=== PATIENT | male | born 1965 | race Caucasian/White ===

== ENCOUNTER 2024-02-09 11:39 | Emergency (ER) | payer OTHER, SELFPAY ==
--- NOTE | 2024-02-09 11:57 | ED.MALEGU ---
HPI - Male Genitourinary General Chief complaint: Urogenital-Male Stated complaint: Bladder/UTI Time Seen by Provider: 02/09/24 12:10 Source: patient Mode of arrival: ambulatory Limitations: no limitations History of Present Illness HPI Narrative: Tian is a 58-year-old male patient presenting to the clinic today with complaints of possible bladder infection. He reports symptoms started 2 days ago. Had fever of 100.4? F last night. Reports he is having some tingling pain to the tip of his penis as well as urgency and frequency with urination. He denies any back back pain or abdominal pain. He denies any concern for STIs. No history of BPH or prostatitis Related Data Allergies Allergy/AdvReac Type Severity Reaction Status Date / Time No Known Allergies Allergy Verified 02/09/24 12:13 Review of Systems Review of Systems: Pertinent positives per HPI. Patient denies any fever, chills, rash, headache, visual changes, dizziness, cough, runny nose, sore throat, shortness of breath, chest pain, palpitations, nausea, vomiting, diarrhea, constipation, abdominal pain. [facility] Social History Social History Alcohol intake: current Comments At the time of my signature, I reviewed and agree with the nursing past medical, surgical, social, and family history. There is no relevant family history pertinent to the patient complaint. Exam Narrative: General: Well-developed, obese in no apparent distress. Head: Normocephalic, atraumatic. Cardio: Regular rate and rhythm, s1 and s2 normal, no murmur appreciated. Resp: Clear to auscultation bilaterally, no rhonchi, rales, wheezing or rubs. Abdomen: Soft, pliable, bowel sounds present in all quadrants, non-tender to palpation, no organomegly, no CVAT tenderness. Course Course Emergency Course: Portions of this record may have been created with voice recognition software. Level of Care: Express Care Visit Vital Signs Vital signs: Vital Signs Temperature 36.8 C 02/09/24 12:01 Pulse Rate 74 02/09/24 12:01 Respiratory Rate 16 02/09/24 12:01 Blood Pressure 123/67 02/09/24 12:01 Pulse Oximetry 96 02/09/24 12:01 Oxygen Delivery Room Air 02/09/24 12:01 Temperature 36.8 C 02/09/24 12:01 Pulse Rate 74 02/09/24 12:01 Respiratory Rate 16 02/09/24 12:01 Blood Pressure 123/67 02/09/24 12:01 Pulse Oximetry 96 02/09/24 12:01 Oxygen Delivery Room Air 02/09/24 12:01 Vital signs reviewed MDM - Male Genitourinary MDM Narrative Medical decision making narrative: At the time of visit patient is resting comfortably on the exam table. Patient appears to be nontoxic. Labs: Urine shows positive 1+ leukocyte and trace of blood. We will send in prescription for Bactrim and send urine for culture. Plan: I suspect patient has UTI. Prescription for Bactrim was sent to the pharmacy. Supportive measures were discussed with the patient and they voiced understanding discharge instructions and agrees to treatment plan. Return precautions reviewed Differential Diagnosis Differential diagnosis: Likely urinary tract infection, urethritis, epididymitis, prostatitis and acute retention of urine Lab Data Labs: Urine Glucose Negative Reference Range: Negative Urine Bilirubin Negative Reference Range: Negative Urine Ketone Negative Reference Range: Negative Urine Specific [place] 1.015 Reference Range:1.001-1.035 Urine Blood Trace Reference Range: Negative * * Urine pH 7.0
[2024-02-09 12:01] VITALS: BP 123/67; PULSE 74; RESP 16; TEMP 36.8; O2SAT 96
== END 2024-02-09 12:24 | disposition home or self-care (01) ==
PROVIDERS: Emergency Provider Nurse Practitioner Family
DX: N30.01 Acute cystitis with hematuria (principal)
CPT/HCPCS: 81003; 87086; 87088; 99203; G0463